=== PATIENT | female | born 1985 ===

== ENCOUNTER 2017-02-13 08:54 | Emergency (ER) | payer OTHER ==
--- NOTE | 2017-02-13 10:14 | ED PDOC ---
Upper Extremity Pain/Injury Time Seen by Provider: 02/13/17 09:00 Chief Complaint (Nursing): Upper Extremity Problem/Injury Chief Complaint (Provider): Upper Extremity Problem/Injury History Per: Patient History/Exam Limitations: no limitations Onset/Duration Of Symptoms: Days Current Symptoms Are (Timing): Still Present Quality: "Pain" Severity: Mild Exacerbating Factor(s): Movement Additional Complaint(s): Patient is a 31 year old female who presents to ED for right arm pain for 13 days. Patient denies trauma, falls or numbness. Notes no associated symptoms like headache, chest pain or dizziness. Past Medical History Reviewed: Historical Data, Nursing Documentation, Vital Signs - Medical History PMH: No Chronic Diseases - Surgical History Surgical History: No Surg Hx - Family History Family History: States: No Known Family Hx - Living Arrangements Living Arrangements: With Family - Allergies Allergies/Adverse Reactions: Allergies Allergy/AdvReac Type Severity Reaction Status Date / Time No Known Allergies Allergy Verified 02/13/17 09:36 Review of Systems ROS Statement: Except As Marked, All Systems Reviewed And Found Negative Constitutional: Negative for: Weakness Eyes: Negative for: Vision Change Cardiovascular: Negative for: Chest Pain, Palpitations Respiratory: Negative for: Shortness of Breath Musculoskeletal: Positive for: Arm Pain. Negative for: Neck Pain Neurological: Negative for: Weakness, Numbness Physical Exam - Reviewed Nursing Documentation Reviewed: Yes Vital Signs Reviewed: Yes - Physical Exam Appears: Positive for: Non-toxic, No Acute Distress Skin: Positive for: Normal Color, Warm Eye Exam: Positive for: Normal appearance Neck: Positive for: Normal, Painless ROM, Supple Cardiovascular/Chest: Positive for: Regular Rate, Rhythm Respiratory: Positive for: Normal Breath Sounds Gastrointestinal/Abdominal: Positive for: Normal Exam Extremity: Positive for: Normal ROM. Negative for: Tenderness, Deformity, Swelling Neurologic/Psych: Positive for: Alert, reexaminer II-XII (grossly intact), Oriented, Gait (stable). Negative for: Motor/Sensory Deficits, Aphasia, Facial Droop Medical Decision Making Medical Decision Making: Time: 944 Initial impression: Arm pain Initial plan: -- CT-head -- Tylenol PO -- Humerus and Shoulder Xray Time: 1140 CT-head results reviewed: PROCEDURE: CT HEAD WITHOUT CONTRAST. HISTORY: left arm pain and numbness in fingers COMPARISON: None available. TECHNIQUE: Axial computed tomography images were obtained through the head/brain without intravenous contrast. Radiation dose: Total exam DLP = 819.38 mGy-cm. This CT exam was performed using one or more of the following dose reduction techniques: Automated exposure control, adjustment of the mA and/or kV according to patient size, and/or use of iterative reconstruction technique. FINDINGS: HEMORRHAGE: No intracranial hemorrhage. BRAIN: No mass effect or edema. No atrophy or chronic microvascular ischemic changes. VENTRICLES: Unremarkable. No hydrocephalus. CALVARIUM: Unremarkable. PARANASAL SINUSES: Unremarkable as visualized. No significant inflammatory changes. MASTOID AIR CELLS: Unremarkable as visualized. No inflammatory changes. OTHER FINDINGS: None. IMPRESSION: Normal CT of the Head. Humerus Xray: PROCEDURE: Radiographs of the right humerus. HISTORY: pain COMPARISON: None. FINDINGS: BONES: Normal. No fracture or focal lesion. SOFT TISSUES: Normal. OTHER FINDINGS: None. IMPRESSION: No evidence of acute fracture or dislocation. Shoulder Xray: PROCEDURE: Radiographs of the Right Shoulder HISTORY: pain COMPARISON: No prior. FINDINGS: BONES: Normal. No fracture. JOINTS: Normal. Glenohumeral and acromioclavicular joints preserved. No osteoarthritis. SOFT TISSUES: Normal. OTHER FINDINGS: None. IMPRESSION: No evidence of acute fracture or dislocation. Time: 1155 Discussed results with patient who reports neck pain at this time Plan: -- CT-cervical neck Time: 1350 CT-cetvical neck results reviewed PROCEDURE: CT Cervical Spine without contrast HISTORY: Right hand numbness COMPARISON: None available. TECHNIQUE: Axial computed tomography images were obtained of the cervical spine without the use of intravenous contrast. Coronal and sagittal reformatted images were created and reviewed. Radiation dose: Total exam DLP = 517.2 MGy-cm. This CT exam was performed using one or more of the following dose reduction techniques: Automated exposure control, adjustment of the mA and/or kV according to patient size, and/or use of iterative reconstruction technique. FINDINGS: VERTEBRAE: No fracture. Normal alignment. No destructive bony lesion. DISCS/SPINAL CANAL/NEURAL FORAMINA: Small osteophyte disc bulge complex at C5-C6 without evidence of significant spinal or neural foraminal narrowing. Discs heights are grossly preserved. PARASPINAL SOFT TISSUES: Unremarkable. OTHER FINDINGS: None. IMPRESSION: Mild degenerative changes. Small osteophyte disc bulging complex at C5-C6 without evidence of significant spinal or neural foraminal narrowing. Time: 1400 Discussed results with patient, instructed to follow up outpatient neuro- surgery. Patient verbalized understanding. pt feels improved. Scribe Attestation: Documented by Lizbet Galvan acting as a scribe for Jarrell Slaughter MD. Scribpooja Attestation: All medical record entries made by the Scribe were at my direction and personally dictated by me. I have reviewed the chart and agree that the record accurately reflects my personal performance of the history, physical exam, medical decision making, and the department course for this patient. I have also personally directed, reviewed, and agree with the discharge instructions and disposition. Disposition - Clinical Impression Clinical Impression: Arm pain - Patient ED Disposition Is Patient to be Admitted: No Counseled Patient/Family Regarding: Studies Performed, Diagnosis, Need For Followup - Disposition Referrals: [facility] [Outside] [facility] [Outside] Albino Doan MD [Staff Provider] - Disposition: Routine/Home Disposition Time: 11:00 Condition: IMPROVED Additional Instructions: follow up with neurosurgeon for cervical disc bulge as instructed. follow up with primary doctor in 2 days return to the ED with any worsening or concerning symptoms. Instructions: Cervical Disc Herniation (ED), Cervical Radiculopathy (ED), Arm Pain (ED) Print Language: SWEDISH
--- NOTE | 2017-02-13 10:43 | RAD ---
PROCEDURE: Radiographs of the Right Shoulder HISTORY: pain COMPARISON: No prior. FINDINGS: BONES: Normal. No fracture. JOINTS: Normal. Glenohumeral and acromioclavicular joints preserved. No osteoarthritis. SOFT TISSUES: Normal. OTHER FINDINGS: None. IMPRESSION: No evidence of acute fracture or dislocation.
--- NOTE | 2017-02-13 10:45 | RAD ---
PROCEDURE: Radiographs of the right humerus. HISTORY: pain COMPARISON: None. FINDINGS: BONES: Normal. No fracture or focal lesion. SOFT TISSUES: Normal. OTHER FINDINGS: None. IMPRESSION: No evidence of acute fracture or dislocation.
--- NOTE | 2017-02-13 10:59 | CT ---
PROCEDURE: CT HEAD WITHOUT CONTRAST. HISTORY: left arm pain and numbness in fingers COMPARISON: None available. TECHNIQUE: Axial computed tomography images were obtained through the head/brain without intravenous contrast. Radiation dose: Total exam DLP = 819.38 mGy-cm. This CT exam was performed using one or more of the following dose reduction techniques: Automated exposure control, adjustment of the mA and/or kV according to patient size, and/or use of iterative reconstruction technique. FINDINGS: HEMORRHAGE: No intracranial hemorrhage. BRAIN: No mass effect or edema. No atrophy or chronic microvascular ischemic changes. VENTRICLES: Unremarkable. No hydrocephalus. CALVARIUM: Unremarkable. PARANASAL SINUSES: Unremarkable as visualized. No significant inflammatory changes. MASTOID AIR CELLS: Unremarkable as visualized. No inflammatory changes. OTHER FINDINGS: None. IMPRESSION: Normal CT of the Head.
--- NOTE | 2017-02-13 12:46 | CT ---
PROCEDURE: CT Cervical Spine without contrast HISTORY: Right hand numbness COMPARISON: None available. TECHNIQUE: Axial computed tomography images were obtained of the cervical spine without the use of intravenous contrast. Coronal and sagittal reformatted images were created and reviewed. Radiation dose: Total exam DLP = 517.2 MGy-cm. This CT exam was performed using one or more of the following dose reduction techniques: Automated exposure control, adjustment of the mA and/or kV according to patient size, and/or use of iterative reconstruction technique. FINDINGS: VERTEBRAE: No fracture. Normal alignment. No destructive bony lesion. DISCS/SPINAL CANAL/NEURAL FORAMINA: Small osteophyte disc bulge complex at C5-C6 without evidence of significant spinal or neural foraminal narrowing. Discs heights are grossly preserved. PARASPINAL SOFT TISSUES: Unremarkable. OTHER FINDINGS: None. IMPRESSION: Mild degenerative changes. Small osteophyte disc bulging complex at C5-C6 without evidence of significant spinal or neural foraminal narrowing.
== END 2017-02-13 14:09 | disposition home or self-care (01) ==
LOC: H.ER 08:54
DX: M25.511 Pain in right shoulder (principal); M79.601 Pain in right arm; M50.222 Other cervical disc displacement at C5-C6 level; R20.0 Anesthesia of skin; M54.12 Radiculopathy, cervical region

== ENCOUNTER 2017-03-14 16:04 | Emergency (ER) | payer SELFPAY ==
[2017-03-14 16:20] VITALS: BP 140/73; PULSE 71; RESP 18; TEMP 98.4; O2SAT 100
--- NOTE | 2017-03-14 17:06 | ED PDOC ---
HPI: Female Pain Time Seen by Provider: 03/14/17 16:41 Chief Complaint (Nursing): Abdominal Pain Chief Complaint (Provider): Vaginal spotting History Per: Patient History/Exam Limitations: no limitations Onset/Duration Of Symptoms: Days (1) Current Symptoms Are (Timing): Intermittent Episodes Associated Symptoms: denies: Fever, Nausea, Vomiting, Diarrhea, Urinary Symptoms Additional Complaint(s): Pt reports minimal lower abdominal pain and minimal vaginal bleeding X 1 day, no care. Denies fever, nausea, vomiting, dysuria, hematuria. Abnormal Vaginal Bleeding: Yes : 5 Para: 2 Miscarriage: 2 Past Medical History Reviewed: Nursing Documentation, Vital Signs Vital Signs: Last Vital Signs Temp 98.4 F 03/14/17 16:17 Pulse 71 03/14/17 16:17 Resp 18 03/14/17 16:17 BP 140/73 03/14/17 16:17 Pulse Ox 100 03/14/17 16:17 - Medical History PMH: No Chronic Diseases - Surgical History Surgical History: Cholecystectomy - Family History Family History: States: No Known Family Hx - Living Arrangements Living Arrangements: With Family - Social History Current smoker - smoking cessation education provided: No Alcohol: None - Home Medications Home Medications: Ambulatory Orders Medication Instructions Recorded Nitrofurantoin Macrocrystals 100 mg PO BID #14 cap 03/14/17 [Macrobid] Vit Calc,Iron,Folic 1 each PO DAILY #30 tablet 03/14/17 [ Vitamins] - Allergies Allergies/Adverse Reactions: Allergies Allergy/AdvReac Type Severity Reaction Status Date / Time No Known Allergies Allergy Verified 02/13/17 09:36 Review of Systems Constitutional: Negative for: Fever, Chills Cardiovascular: Negative for: Chest Pain, Palpitations Respiratory: Negative for: Cough, Shortness of Breath Gastrointestinal: Positive for: Abdominal Pain. Negative for: Nausea, Vomiting , Diarrhea Genitourinary Female: Positive for: Vaginal Bleeding, Pelvic Pain. Negative for : Dysuria, Hematuria, Vaginal Discharge Musculoskeletal: Negative for: Back Pain Skin: Negative for: Rash, Lesions Neurological: Negative for: Headache Physical Exam - Reviewed Nursing Documentation Reviewed: Yes Vital Signs Reviewed: Yes - Physical Exam Appears: Positive for: Well, No Acute Distress Head Exam: Positive for: ATRAUMATIC, NORMAL INSPECTION Skin: Positive for: Normal Color, Warm, Dry Eye Exam: Positive for: Normal appearance, EOMI, PERRL Cardiovascular/Chest: Positive for: Regular Rate, Rhythm Respiratory: Positive for: Normal Breath Sounds Gastrointestinal/Abdominal: Positive for: Bowel Sounds, Soft, Tenderness ( Suprapubic). Negative for: Distended, Guarding, Rebound Extremity: Positive for: Normal ROM Neurologic/Psych: Positive for: Alert, Oriented - Laboratory Results Result Diagrams: 03/14/17 17:15 03/14/17 17:15 - ECG O2 Sat by Pulse Oximetry: 100 - CT Scan/US Pelvic ultrasound Other Rad Studies (CT/US): Radiology Report Reviewed (Tiny saclike structure within the endometrial canal without pole or yolk sac. Unremarkable right adnexa. Limitations of the current examination: Nonvisualization left adnexa.) - Physician Consult Information Physician Contacted: Jeff Tripathi Outcome Of Conversation: Recommends discharge home to follow-up with Clinic. Medical Decision Making Medical Decision Makin yo female with vaginal spotting and suprapubic pain. - labs - pelvic ultrasound Disposition - Clinical Impression Clinical Impression: UTI in , Threatened - Disposition Referrals: [facility] [Outside] [facility] [Outside] Disposition: Routine/Home Disposition Time: 18:42 Condition: STABLE Prescriptions: Nitrofurantoin Macrocrystals [Macrobid] 100 mg PO BID #14 cap Vit Calc,Iron,Folic [ Vitamins] 1 each PO DAILY #30 tablet Instructions: Threatened Miscarriage (ED), Urinary Tract Infection in (ED) Print Language: GEORGIAN
[2017-03-14 17:37] LABS: BASO # 0.1 K/uL (0.0-0.2); BASO % 0.9 % (0.0-2.0); EOS # 0.5 K/uL (0.0-0.7); EOS % 4.5 % (0.0-4.0); HEMATOCRIT 40.5 % (34.0-47.0); LYMPH # 3.3 K/uL (1.0-4.3); LYMPH % 28.1 % (20.0-40.0); MEAN CELL VOLUME 88.5 fl (81.0-99.0); MEAN CORPUSCULAR HEMOGLOBIN 29.9 pg (27.0-31.0); MEAN CORPUSCULAR HGB CONC 33.8 g/dL (33.0-37.0); MEAN PLATELET VOLUME 7.5 fl (7.2-11.7); MONO # 0.9 K/uL (0.0-0.8); NEUT # 6.9 K/uL (1.8-7.0); NEUT % 58.5 % (50.0-75.0); NRBC % 0.1 % (0.0-0.0); RED CELL DISTRIBUTION WIDTH 13.5 % (11.5-14.5); WHITE BLOOD COUNT 11.9 K/uL (4.8-10.8)
[2017-03-14 17:45] LABS: ALB/GLOB RATIO 1.2 (1.0-2.1); ALKALINE PHOSPHATASE 45 U/L (38-126); ALT/SGPT 76 U/L (9-52); AST/SGOT 41 U/L (14-36); BILIRUBIN,TOTAL 0.4 mg/dl (0.2-1.3); BLOOD UREA NITROGEN 8 mg/dl (7-17); CALCIUM 9.4 mg/dL (8.4-10.2); CARBON DIOXIDE 25 mmol/L (22-30); CHLORIDE 103 mmol/L (98-107); GFR AFRICAN-AMERICAN > 60; GLUCOSE,RANDOM 95 mg/dL (65-105); POTASSIUM 3.7 MMOL/L (3.6-5.0); SODIUM 139 mmol/l (132-148); TOTAL PROTEIN 8.4 G/DL (6.3-8.2)
[2017-03-14 17:56] LABS: PARTIAL THROMBOPLASTIN TIME 29.4 Seconds (25.6-37.1)
[2017-03-14 17:58] LABS: RBC URINE 10 /hpf (0-3); URINE BACTERIA FEW (<OCC); URINE BILIRUBIN NEGATIVE (NEGATIVE); URINE BLOOD LARGE (NEGATIVE); URINE COLOR YELLOW (YELLOW); URINE GLUCOSE (UA) NEG (Normal); URINE KETONE NEGATIVE (NEGATIVE); URINE LEUKOCYTE ESTERASE NEG Leu/uL (Negative); URINE PROTEIN NEGATIVE (NEGATIVE); URINE UROBILINOGEN 0.2-1.0 mg/dL (0.2-1.0); WBC URINE 7 /hpf (0-5)
--- NOTE | 2017-03-14 18:08 | US ---
PROCEDURE: Pelvic ultrasound HISTORY: 4 weeks vaginal spotting. Beta HCG results: Pending COMPARISON: None TECHNIQUE: Transvaginal only. Real -time technique with 2D, duplex and color Doppler FINDINGS: Uterus measures 3.7 x 7.9 cm. Endometrial thickness 8.1 mm. 1.7 x 3.6 mm cystic structure within the endometrial canal perhaps an early gestational sac. No yolk sac or pole identified. Right ovary 1.5 x 3 cm. Unremarkable. Flow documented to the right adnexa. Left ovary/adnexa not visualize. IMPRESSION: Tiny saclike structure within the endometrial canal without pole or yolk sac. Unremarkable right adnexa. Limitations of the current examination: Nonvisualization left adnexa.
== END 2017-03-14 19:13 | disposition home or self-care (01) ==
LOC: H.ER 16:04
DX: O20.0 Threatened abortion (principal); Z3A.01 Less than 8 weeks gestation of pregnancy; O23.40 Unspecified infection of urinary tract in pregnancy, unspecified trimester

== ENCOUNTER 2017-04-22 10:44 | Emergency (ER) | payer SELFPAY ==
[2017-04-22 10:53] VITALS: BP 129/72; PULSE 96; RESP 16; TEMP 98.2; O2SAT 100; BMI 32.4
--- NOTE | 2017-04-22 13:04 | ED PDOC ---
HPI: CCC, URI, Sore Throat Time Seen by Provider: 04/22/17 11:06 Chief Complaint (Nursing): ENT Problem Chief Complaint (Provider): Cerumen impaction History Per: Patient Additional Complaint(s): 31 yo female, no PMH, presents to ED with complaints of difficulty hearing on left ear x5 days. No pain. Past Medical History Reviewed: Nursing Documentation, Vital Signs Vital Signs: Last Vital Signs Temp 98.2 F 04/22/17 10:52 Pulse 96 H 04/22/17 10:52 Resp 16 04/22/17 10:52 BP 129/72 04/22/17 10:52 Pulse Ox 100 04/22/17 10:52 - Medical History PMH: No Chronic Diseases - Surgical History Surgical History: Cholecystectomy - Family History Family History: States: No Known Family Hx - Living Arrangements Living Arrangements: With Family - Social History Current smoker - smoking cessation education provided: No Alcohol: None Drugs: Denies - Home Medications Home Medications: Ambulatory Orders Medication Instructions Recorded Nitrofurantoin Macrocrystals 100 mg PO BID #14 cap 03/14/17 [Macrobid] Vit Calc,Iron,Folic 1 each PO DAILY #30 tablet 03/14/17 [ Vitamins] Carbamide Peroxide [Debrox] 15 ml OT BID #1 bottle 04/22/17 - Allergies Allergies/Adverse Reactions: Allergies Allergy/AdvReac Type Severity Reaction Status Date / Time No Known Allergies Allergy Verified 02/13/17 09:36 Review of Systems ROS Statement: Except As Marked, All Systems Reviewed And Found Negative ENT: Positive for: Other (ear clogged) Physical Exam - Reviewed Nursing Documentation Reviewed: Yes Vital Signs Reviewed: Yes - Physical Exam Appears: Positive for: Well, Non-toxic, No Acute Distress Head Exam: Positive for: ATRAUMATIC, NORMAL INSPECTION, NORMOCEPHALIC Skin: Positive for: Normal Color, Warm, DRY Eye Exam: Positive for: EOMI, Normal appearance, PERRL ENT: Positive for: TM Is/Are (not visible, b/l cerumen impaction) Neck: Positive for: Normal, Painless ROM Cardiovascular/Chest: Positive for: Regular Rate, Rhythm Respiratory: Positive for: CNT, Normal Breath Sounds Gastrointestinal/Abdominal: Positive for: Normal Exam, Bowel Sounds, Soft Back: Positive for: Normal Inspection Extremity: Positive for: Normal ROM Neurologic/Psych: Positive for: Alert, Oriented - ECG O2 Sat by Pulse Oximetry: 100 Medical Decision Making Medical Decision Making: Medicated with Debrox drops and irrigation advised Disposition - Clinical Impression Clinical Impression: Cerumen impaction - Patient ED Disposition Is Patient to be Admitted: No - Disposition Disposition: Routine/Home Disposition Time: 13:04 Condition: STABLE Prescriptions: Carbamide Peroxide [Debrox] 15 ml OT BID #1 bottle Instructions: Cerumen Impaction (ED) Print Language: NORTH KOREAN
== END 2017-04-22 11:52 | disposition home or self-care (01) ==
LOC: H.ER 10:44
DX: H61.23 Impacted cerumen, bilateral (principal)

== ENCOUNTER 2017-06-23 06:02 | Emergency (ER) | payer SELFPAY ==
[2017-06-23 06:02] VITALS: BMI 32.4
[2017-06-23 06:14] VITALS: PULSE 83; O2SAT 100
[2017-06-23] MEDS ORDERED: Sodium Chloride 0.9% 1,000 ML IV STA (06:19)
--- NOTE | 2017-06-23 06:23 | ED PDOC ---
HPI:Nausea, Vomiting, Diarrhea Time Seen by Provider: 06/23/17 06:16 Chief Complaint (Nursing): Dizziness/Lightheaded Chief Complaint (Provider): Vomiting History Per: Patient History/Exam Limitations: no limitations Onset/Duration Of Symptoms: Hrs (since earlier today) Current Symptoms Are (Timing): Still Present Associated Symptoms: Other ((+) dizziness) Additional Complaint(s): 31 year old female presents to ED with complaints of dizziness and vomiting since earlier today and is . Patient states she has vomited x3 times today and that it was yellow. (-) pain, vaginal bleeding, or discharge. Describes her dizziness as being lightheaded. PCP: Sav Reardon Abnormal Vaginal Bleeding: No : 6 Para: 2 Past Medical History Reviewed: Historical Data, Nursing Documentation, Vital Signs Vital Signs: Last Vital Signs Temp 97.9 F 06/23/17 06:11 Pulse 83 06/23/17 06:11 Resp 20 06/23/17 06:11 BP 108/69 06/23/17 06:11 Pulse Ox 100 06/23/17 06:11 - Medical History PMH: No Chronic Diseases - Surgical History Surgical History: Cholecystectomy - Family History Family History: States: Unknown Family Hx - Living Arrangements Living Arrangements: With Family - Social History Current smoker - smoking cessation education provided: No Ex-Smoker (has not smoked in the last 12 months): No Alcohol: None Drugs: Denies - Home Medications Home Medications: Ambulatory Orders Medication Instructions Recorded Nitrofurantoin Macrocrystals 100 mg PO BID #14 cap 03/14/17 [Macrobid] Vit Calc,Iron,Folic 1 each PO DAILY #30 tablet 03/14/17 [ Vitamins] Carbamide Peroxide [Debrox] 15 ml OT BID #1 bottle 04/22/17 - Allergies Allergies/Adverse Reactions: Allergies Allergy/AdvReac Type Severity Reaction Status Date / Time No Known Allergies Allergy Verified 06/23/17 06:11 Review of Systems ROS Statement: Except As Marked, All Systems Reviewed And Found Negative Gastrointestinal: Positive for: Vomiting. Negative for: Abdominal Pain Genitourinary Female: Negative for: Vaginal Discharge, Vaginal Bleeding Neurological: Positive for: Dizziness (lightheaded) Physical Exam - Reviewed Nursing Documentation Reviewed: Yes Vital Signs Reviewed: Yes - Physical Exam Appears: Positive for: Non-toxic, Uncomfortable Skin: Positive for: Normal Color, Warm, Dry Eye Exam: Positive for: Normal appearance, EOMI, PERRL ENT: Positive for: Normal ENT Inspection Neck: Positive for: Normal, Painless ROM Cardiovascular/Chest: Positive for: Regular Rate, Rhythm. Negative for: Murmur Respiratory: Positive for: Normal Breath Sounds. Negative for: Respiratory Distress Gastrointestinal/Abdominal: Positive for: Normal Exam, Soft, Other (gravid uterus). Negative for: Tenderness Back: Positive for: Normal Inspection Extremity: Positive for: Normal ROM. Negative for: Deformity Neurologic/Psych: Positive for: Alert, Oriented. Negative for: Motor/Sensory Deficits - ECG O2 Sat by Pulse Oximetry: 100 (RA) Pulse Ox Interpretation: Normal Medical Decision Making Medical Decision Makin Initial impression: dehydration and Initial plan: * Labs * BETA HCG QUANT * UPreg * UDip * NS IV * Reglan 10mg IVPB * US OB PREG * Re-eval 0700 Patient will be signed out to Jarrell Slaughter MD pending US, bloodwork, and reassessment, Scribe Attestation: Documented by Susana Peters acting as a scribe for Den Chisholm MD. Scribe Attestation: All medical record entries made by the Scribe were at my direction and personally dictated by me. I have reviewed the chart and agree that the record accurately reflects my personal performance of the history, physical exam, medical decision making, and the department course for this patient. I have also personally directed, reviewed, and agree with the discharge instructions and disposition. Disposition - Clinical Impression Clinical Impression: Dizziness - Disposition Disposition: Transfer of Care Disposition Time: 07:00 Condition: FAIR Forms: [facility] (Hebrew) Patient Signed Over To: Jarrell Slaughter Y Handoff Comments: pending US, bloodwork, and reassessment
[2017-06-23 06:42] LABS: BASO # 0.1 K/uL (0.0-0.2); BASO % 0.4 % (0.0-2.0); EOS # 0.6 K/uL (0.0-0.7); HEMATOCRIT 38.5 % (34.0-47.0); LYMPH # 3.5 K/uL (1.0-4.3); LYMPH % 24.3 % (20.0-40.0); MEAN CELL VOLUME 88.8 fl (81.0-99.0); MEAN CORPUSCULAR HEMOGLOBIN 30.1 pg (27.0-31.0); MEAN CORPUSCULAR HGB CONC 33.8 g/dL (33.0-37.0); MEAN PLATELET VOLUME 7.8 fl (7.2-11.7); MONO # 0.7 K/uL (0.0-0.8); MONO % 4.6 % (0.0-10.0); NEUT # 9.7 K/uL (1.8-7.0); NEUT % 66.7 % (50.0-75.0); RED CELL DISTRIBUTION WIDTH 13.3 % (11.5-14.5); WHITE BLOOD COUNT 14.5 K/uL (4.8-10.8)
[2017-06-23 06:51] LABS: BLOOD UREA NITROGEN 9 mg/dl (7-17); CALCIUM 9.1 mg/dL (8.4-10.2); CARBON DIOXIDE 22 mmol/L (22-30); CHLORIDE 105 mmol/L (98-107); GFR AFRICAN-AMERICAN > 60; GLUCOSE,RANDOM 122 mg/dL (65-105); POTASSIUM 3.1 MMOL/L (3.6-5.0); SODIUM 137 mmol/l (132-148)
--- NOTE | 2017-06-23 07:24 | ED PDOC ---
- Laboratory Results Result Diagrams: 06/23/17 06:37 06/23/17 06:37 - ECG O2 Sat by Pulse Oximetry: 100 (RA) Pulse Ox Interpretation: Normal Medical Decision Making Medical Decision Makin:00 Patient signed out to me from Dr. Chisholm. Ultrasound pending. 10:59 Obstetrics ultrasound reviewed. Findings noted as follows: There is a single live intrauterine fetus with anterior placenta. biometric measurements demonstrates the BPD measures roughly 2.8 centimeters corresponding to 15 weeks gestational age. The remaining biometric measurements are within normal limits. anatomic survey was not performed. heart motion is observed at 157 beats per minute. The ovaries are not identified. IMPRESSION: As above. 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
--- NOTE | 2017-06-23 11:00 | US ---
PROCEDURE: HISTORY: 14 wks, dizziness COMPARISON: 05/10/2017 TECHNIQUE: FINDINGS: There is a single live intrauterine fetus with anterior placenta. biometric measurements demonstrates the BPD measures roughly 2.8 centimeters corresponding to 15 weeks gestational age. The remaining biometric measurements are within normal limits. anatomic survey was not performed. heart motion is observed at 157 beats per minute. The ovaries are not identified. IMPRESSION: As above.
[2017-06-23 11:42] VITALS: BP 132/74; RESP 18; TEMP 98.3
== END 2017-06-23 11:42 | disposition home or self-care (01) ==
LOC: H.ER 06:02
DX: R42 Dizziness and giddiness (principal); O21.9 Vomiting of pregnancy, unspecified; E86.0 Dehydration; Z3A.14 14 weeks gestation of pregnancy
CPT/HCPCS: 76815; 80048; 81025; 84702; 85025; 96361; 96374; 99285; J2765; J7040

== ENCOUNTER 2017-12-04 07:55 | Emergency (ER) | payer SELFPAY ==
[2017-12-04 10:55] VITALS: BMI 30.3
[2017-12-04 11:41] LABS: SQUAMOUS EPITHIAL < 1 /hpf (0-5); URINE BACTERIA RARE (<OCC); URINE BILIRUBIN NEGATIVE (NEGATIVE); URINE BLOOD NEGATIVE (NEGATIVE); URINE CLARITY SLIGHTY-CLOUDY (Clear); URINE COLOR YELLOW (YELLOW); URINE GLUCOSE (UA) NEG (Normal); URINE LEUKOCYTE ESTERASE NEG Leu/uL (Negative); URINE NITRATE NEGATIVE (NEGATIVE); URINE PROTEIN NEGATIVE (NEGATIVE); URINE UROBILINOGEN 0.2-1.0 mg/dL (0.2-1.0)
[2017-12-04 16:33] VITALS: BP 107/72; PULSE 65; RESP 18; TEMP 98.2; O2SAT 100
== END 2017-12-04 12:10 | disposition home or self-care (01) ==
LOC: H.EROB2 07:55 → H.EROB 08:19 → H.EROB2 12:10
DX: O26.93 Pregnancy related conditions, unspecified, third trimester (principal); R10.2 Pelvic and perineal pain; Z3A.37 37 weeks gestation of pregnancy

== ENCOUNTER 2017-12-10 08:26 | Emergency (ER) | payer SELFPAY ==
[2017-12-10 09:31] VITALS: BMI 36.0
--- NOTE | 2017-12-10 11:27 | OBHP ---
Datetime: 12/10/2017 09:47 IP Adm Impression: Term, intrauterine IP Admit Plan: Discharge home Admit Comment, IP Provider: 32 yo with IUP at 38+1 weeks with NAVEEN 12/23, presented to [facility] w ith compaints of abdominal pressure. Pt reports good movement, denies vaginal bleeding. Unsure about rupture of membranes- states she had passed some mucus with fluid this morning, but states her underwear and clothes were dry when she arrived to [facility]. Feels irregular contractions q10 min. care: [facility], Vidhya Carver. Next appt tomorrow 12/11 GBS neg, RPR neg, HIV neg, HbsAg neg, ABO Apos, gc/cl neg, rubella immune. Med hx: none OB hx: 2007 NVD 38w at [facility]. 2 SAB at 6 and 8 weeks in 2008. NVD 2011 41 w at [place]. SAB 2017 8 weeks. 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 PE: Gen: alert, oriented, NAD CV: S1S2, RRR Resp: clear to ausc bilaterally, normal effort Abd: gravid, nontender Ext: no edema, no deformity SSE: no pooling Nitrazine negative SVE: 1cm, not effaced, high, posterior. Bedside sono: vertex presentation Assessment: 32 yo with IUP at 38+1, not in active labor. Plan: Discharge home with labor precautions. Strongly encourage follow up at [facility] at scheduled appt tomorrow. Pt seen/discussed w/ [facility] The patient was seen with the resident I agree with the notes Pelvic Type - PN: Adequate Extremities - PN: Normal Abdomen - PN: Normal Back - PN: Normal Breast - PN: Not Done Lungs - PN: Normal Heart - PN: Normal Thyroid - PN: Not Done Neurologic - PN: Normal HEENT - PN: Normal General - PN: Normal FHR - Baseline A Provider: 130 Comments, ACOG Physical Exam: SSE: no pooling Nitrazine negative SVE: 1cm, not effaced, high, posterior. Bedside sono: vertex presentation Pool Provider: Negative Nitrazine Provider: Negative EGA AdmitDate IP: 38.1 Vital Signs Provider: Reviewed IP Chief Complaint: Maternal discomfort NICHD Variability Prov Fetus A: Moderate 6-25bpm NICHD Accel Fetus A IP Provider: [id number] FHR Category Provider Fetus A: Category I Dilatation, Provider: 1 Effacement, Provider: 20 Station, Provider: -3 Genitourinary Exam: Normal DTRs - PN: Not Done
[2017-12-10 14:30] VITALS: BP 103/71; PULSE 79; RESP 17; TEMP 97.8; O2SAT 99
== END 2017-12-10 10:10 | disposition home or self-care (01) ==
LOC: H.EROB2 08:26
DX: O26.93 Pregnancy related conditions, unspecified, third trimester (principal); R10.2 Pelvic and perineal pain; Z3A.38 38 weeks gestation of pregnancy; O47.1 False labor at or after 37 completed weeks of gestation

== ENCOUNTER 2017-12-10 22:10 | Inpatient (IN) | payer MEDICAID, SELFPAY ==
[2017-12-10] MEDS: Lactated Ringer's 1,000 ML IV SCH ×2 (22:55→23:40)
[2017-12-10 22:58] VITALS: BMI 40.6
[2017-12-10] MEDS ORDERED: Oxytocin 30 UNITS in Sodium Chloride 0.9% 500 ML IV SCH (23:15)
[2017-12-10 23:27] LABS: BASO # 0.1 K/uL (0.0-0.2); BASO % 0.5 % (0.0-2.0); EOS # 0.3 K/uL (0.0-0.7); EOS % 2.8 % (0.0-4.0); LYMPH # 3.1 K/uL (1.0-4.3); MEAN CELL VOLUME 89.1 fl (81.0-99.0); MEAN CORPUSCULAR HEMOGLOBIN 29.7 pg (27.0-31.0); MEAN CORPUSCULAR HGB CONC 33.3 g/dL (33.0-37.0); MEAN PLATELET VOLUME 8.8 fl (7.2-11.7); MONO # 0.7 K/uL (0.0-0.8); MONO % 5.4 % (0.0-10.0); NEUT # 8.2 K/uL (1.8-7.0); NEUT % 66.3 % (50.0-75.0); NRBC % 0.1 % (0.0-0.0); RBC 4.73 Mil/uL (3.80-5.20); RED CELL DISTRIBUTION WIDTH 14.8 % (11.5-14.5); WHITE BLOOD COUNT 12.4 K/uL (4.8-10.8)
[2017-12-10] MEDS ORDERED: Lactated Ringer's 1,000 ML IV SCH (23:45)
[2017-12-11] MEDS ORDERED: Fentanyl/Bupivacaine HCl 250 ML EPI ONE
[2017-12-11] MEDS ORDERED: Bupivacaine HCl 0.25% PF (10 ml) Inj ONE (00:06)
[2017-12-11] MEDS ORDERED: Oxycodone/Acetaminophen 5/325 mg Tab PO PRN ×2 (05:04→22:06)
[2017-12-11] MEDS ORDERED: Benzocaine/Menthol SPRAY TOP PRN ×2 (05:04→22:06)
--- NOTE | 2017-12-11 08:28 | OBDS ---
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 Spontaenous delivery pf place nta at 4:43. 1st degree laceration repair. LABOR SUMMARY EDC: 12/23/2017 00:00 No. Babies in Womb: 1 Attempted: No Labor Anesthesia: Epidural LABOR INFORMATION Reason for Induction: Not Applicable Onset of Labor: 12/11/2017 01:00 Complete Dilatation: 12/11/2017 04:28 Oxytocin: N/A Group B Beta Strep: Negative Steroids Given: None Reason Steroids Not Administered: Not Applicable MEMBRANES Membranes Rupture Method: Spontaneous Rupture of Membranes: 12/11/2017 03:45 Length of Rupture (hrs): 0.92 Amniotic Fluid Color: Light Meconium Amniotic Fluid Amount: Moderate Amniotic Fluid Odor: Normal STAGES OF LABOR Stage 1 hrs: 3 Stage 1 min: 28 Stage 2 hrs: 0 Stage 2 min: 12 Stage 3 hrs: 0 Stage 3 min: 3 Total Time in Labor hrs: 3 Total Time in Labor min: 43 VAGINAL DELIVERY Episiotomy: None Laceration Extension: First Degree Laceration Type: Perineal Initial Vag Sponge Count: 5 Final Vag Sponge Count: 5 Initial Vag Sharps Count: 1 Final Vag Sharps Count: 1 Sponge Count Correct: Yes Sharps Count Correct: Yes BABY A INFORMATION Delivery Date/Time: 12/11/2017 04:40 Method of Delivery: Vaginal Born in Route : No : N/A Forceps: N/A Vacuum Extraction: N/A Shoulder Dystocia : No SHOULDER DYSTOCIA BABY A Delivery Date/Time: 12/11/2017 04:40 PRESENTATION/POSITION BABY A Presentation: Compound Cephalic Presentation: Vertex PLACENTA INFORMATION BABY A Placenta Delivery Time : 12/11/2017 04:43 Placenta Method of Delivery: Spontaneous Placenta Status: Delivered SCORES BABY A Heart Rate 1 min: >100 bpm Resp Effort 1 min: Good Cry Reflex Irritability 1 min: Cough or Sneeze or Pulls Away Muscle Tone 1 min: Active Motion Color 1 min: Body [place], Extremities Blue Resuscitation Effort 1 min: Tactile Stimulation SCORE 1 MIN: 9 Heart Rate 5 min: >100 bpm Resp Effort 5 min: Good Cry Reflex Irritability 5 min: Cough or Sneeze or Pulls Away Muscle Tone 5 min: Active Motion Color 5 min: Body [place], Extremities Blue Resuscitation Effort 5 min: Tactile Stimulation SCORE 5 MIN: 9 INFORMATION BABY A Gestational Age at Delivery: 38.2 Gestational Status: Term Infant Outcome : Liveborn Infant Condition : Stable Sex: Male IDENTIFICATION/MEDS BABY A ID Band Number: [id number] ID Band Location: Left Leg; Left Arm WEIGHT/LENGTH BABY A Infant Birthweight (gms): 3190 Infant Weight (lb): 7 Infant Weight (oz): 0 CORD INFORMATION BABY A No. Cord Vessels: 3 Nuchal Cord : Around Neck x1, Loose Cord Blood Taken: Yes Infant Suction: Mouth; Nose
--- NOTE | 2017-12-11 08:30 | OBADHP ---
Datetime: 12/10/2017 23:23 Admit Comment, IP Provider: 32 yo with IUP at 38+1 weeks with NAVEEN 12/23, presented to [facility] w ith compaints of reegular ctx q 10min since 5pm today and leakage of clear fluids. Pt reports good fe sheela movement, denies vaginal bleeding. Seen earlier today in [facility], was found to be 1cm. care: [facility], Vidhya Carver. Next appt tomorrow 12/11 GBS neg, RPR neg, HIV neg, HbsAg neg, ABO Apos, gc/cl neg, rubella immune. +PPD, Carlos neg at 28 we eks Med hx: none OB hx: 2 prior NVD full term at [place]. 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 PE: Gen: alert, oriented, NAD CV: S1S2, RRR Resp: clear to ausc bilaterally, normal effort Abd: gravid, nontender Ext: no edema, no deformity SSE: no pooling Nitrazine negative SVE: 4cm, no pooling, bloody-mucous plug seen in cervical os Bedside sono: vertex presentation FHR: 144, reactive Assessment: 32 yo with IUP at 38+1, active labor, membranes in tact. FHR reassuring. Plan: Admit to L_D.CBC, Type and Screen. Continuous monitoring. Monitor for progression of l abor. IV hydration. NPO Pt seen/discussed w/ Dr. Deuce Mcpherson, PGY1 Pelvic Type - PN: Adequate Extremities - PN: Normal Abdomen - PN: Normal Back - PN: Normal Breast - PN: Not Done Lungs - PN: Normal Heart - PN: Normal Thyroid - PN: Normal Neurologic - PN: Normal HEENT - PN: Normal General - PN: Normal Vital Signs Provider: Reviewed; Within Normal Limits IP Chief Complaint: Uterine contractions Genitourinary Exam: Normal DTRs - PN: Not Done EGA AdmitDate IP: 38.2 IP Adm Impression: Term, intrauterine IP Admit Plan: Admit to unit; Initiate labor protocol Datetime: 12/10/2017 23:15 FHR - Baseline A Provider: 144 NICHD Accel Fetus A IP Provider: [id number] NICHD Decel Fetus A IP Provider: None Dilatation, Provider: 4 Datetime: 12/10/2017 09:47 Comments, ACOG Physical Exam: SSE: no pooling Nitrazine negative SVE: 1cm, not effaced, high, posterior. Bedside sono: vertex presentation Pool Provider: Negative Nitrazine Provider: Negative NICHD Variability Prov Fetus A: Moderate 6-25bpm FHR Category Provider Fetus A: Category I Effacement, Provider: 20 Station, Provider: -3
[2017-12-12 06:49] LABS: HEMOGLOBIN 12.1 g/dL (12.0-16.0); MEAN CELL VOLUME 89.3 fl (81.0-99.0); MEAN CORPUSCULAR HEMOGLOBIN 30.1 pg (27.0-31.0); MEAN CORPUSCULAR HGB CONC 33.7 g/dL (33.0-37.0); RBC 4.03 Mil/uL (3.80-5.20); RED CELL DISTRIBUTION WIDTH 14.8 % (11.5-14.5); WHITE BLOOD COUNT 10.9 K/uL (4.8-10.8)
--- NOTE | 2017-12-12 09:39 | OBPPN ---
Datetime: 12/12/2017 06:55 PP Nausea Prov: Denies PP Flatus Prov: No PP BM Prov: No PP Heart Prov: Normal PP Lungs Prov: Normal PP Abdomen/Uterus Prov: Normal PP Lochia Prov: Normal PP CVA Tenderness Prov: Normal PP Extremities Prov: Normal PP Impression Prov: Normal progression PP Plan Prov: Continue present management PP Progress Note Prov: PPD 1 32 y/o female now on PPD 1 seen and examined at bedside this morning. No overnight events. Reports pain is controlled with pain medications. Voiding freely w/o difficulty. Pt reports not pass ing gas per rectum and no BM yet. Ambulating well w/o dizziness. Lochia is similar to menses volume. Pt is w/o difficulty. Denies nausea, vomiting, fever, chills, chest pain or calf pain. Physical Exam: General: A_O, resting comfortably in bed, NAD HEENT: oral mucosa moist. Lungs: CTA B/L, no wheezing, rhonchi or rales CVS: RRR, S1, S2 ABD: ND, +BS, firm fundus @ umbilical level. Soft, appropriate TTP. EXT: no edema, negative Ginger's sign, Neuro/psych: AAOX3. Assessment: 32 y/o now doing well on PPD 1 Plan: OOB w/ caution Regular diet Percocet and Ibuprofen for pain management Encourage and ambulation Anticipate discharge tomorrow Case d/w OB attending Sultan Parnell, PGY1 Addendum by Dr. Gonzalez: Patient evaluated independently and I agree with the above Vital Signs Provider PP: Reviewed; Within Normal Limits
--- NOTE | 2017-12-12 09:48 | OBDS ---
Length of Rupture (hrs): 0.92
[2017-12-13 23:15] VITALS: BP 97/62; PULSE 83; RESP 20; TEMP 97; O2SAT 100
== END 2017-12-13 18:22 | disposition home or self-care (01) | DRG 775 ==
LOC: H.EROB2 22:10 → H.L&D 23:05 → H.OB/GYN 12-11 08:57
PROVIDERS: ADMIT Obstetrics & Gynecology Gynecology; ATTEND Obstetrics & Gynecology Gynecology
PROC: 10E0XZZ Delivery of Products of Conception, External Approach (ICD-10-PCS; principal; 2017-12-10)
PROC: 0HQ9XZZ Repair Perineum Skin, External Approach (ICD-10-PCS; 2017-12-10)
PROC: 4A1HXCZ Monitoring of Products of Conception, Cardiac Rate, External Approach (ICD-10-PCS; 2017-12-10)
DX: O69.81X0 Labor and delivery complicated by cord around neck, without compression, not applicable or unspecified (principal); O70.0 First degree perineal laceration during delivery; Z37.0 Single live birth; Z3A.38 38 weeks gestation of pregnancy